=== PATIENT | female | born 2000 | race Caucasian/White ===

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

== ENCOUNTER 2024-01-05 21:24 | Emergency (ER) | payer BC | END 2024-01-05 23:46 | disposition home or self-care (01) | LOC: ERS 21:24 | DX: E16.2 Hypoglycemia, unspecified (principal); R42 Dizziness and giddiness | CPT/HCPCS: 36416; 99284 ==